=== PATIENT | male | born 1985 | race Caucasian/White ===

== ENCOUNTER 2020-10-28 17:08 | Emergency (ER) | payer MEDICAID ==
[~2020-10-28] VITALS: Ht 170.2 cm; Wt 76.2 kg
[2020-10-28] MEDS ORDERED: LIDOCAINE 1%-EPI 1:100,000 20 ML VIAL ONE (17:45)
[2020-10-28] MEDS ORDERED: LIDOCAINE 0.5%-EPI 1:200,000 50 ML VIAL TP ONE (18:00)
--- NOTE | 2020-10-28 18:16 | NUR ---
Patient came in to the er c/o r deltoid pain and swelling w/ noted drainage X 1 week. On room air, breathing evenly and unlabored. Connected to the monitor and pulse ox. kept comfortable, will continue to monitor accordingly.
[2020-10-28] MEDS ORDERED: SULF1TAB48 PO (18:21)
[2020-10-28] MEDS ORDERED: CEPH500C2 PO (18:21)
[2020-10-28 18:28] VITALS: BP 118/77
--- NOTE | 2020-10-28 18:28 | NUR ---
Patient discharged to home in stable condition. Written and verbal after care instructions given. Patient verbalizes understanding of instruction.
== END 2020-10-28 18:28 | disposition home or self-care (01) ==
LOC: ER 17:08
DX: L02.413 Cutaneous abscess of right upper limb (principal); F15.90 Other stimulant use, unspecified, uncomplicated
CPT/HCPCS: 10060; 99283; A6403; A6407; J3490

== ENCOUNTER 2020-10-30 13:20 | Emergency (ER) | payer MEDICAID ==
[~2020-10-30] VITALS: Ht 170.2 cm; Wt 76.2 kg
[~2020-10-30 13:20] MED LIST: CEPH500C2 PO; SULF1TAB48 PO
[2020-10-30 13:27] VITALS: BP 135/81
--- NOTE | 2020-10-30 13:35 | NUR ---
The patient bibs for c/o R deltoid wound check. Rates pain 2/10. Denies numbness/tingling in the extremity. Will continue to monitor the patient.
--- NOTE | 2020-10-30 14:16 | NUR ---
Patient discharged to home in stable condition. Written and verbal after care instructions given. Patient verbalizes understanding of instruction.
== END 2020-10-30 14:17 | disposition home or self-care (01) ==
LOC: ER 13:23
DX: L02.413 Cutaneous abscess of right upper limb (principal)
CPT/HCPCS: 99281; A6403; A6407